=== PATIENT | female | born 1975 | race Caucasian/White ===

== ENCOUNTER 2020-03-08 09:00 | Emergency (ER) | payer MEDICAID ==
[~2020-03-08] VITALS: Ht 172.7 cm; Wt 149.7 kg
[~2020-03-08 09:00] MED LIST: ACIPHEX; ALBUAER3 IN; DOXY-286 PO; FLUC200T35 PO; GLYB1POW; INSU100I4 SC; INSU1INJ4 SC; METFORMIN; SACC250C PO
[2020-03-08 09:50] LABS: Basophils # (auto) 0.1 10 ^3/uL (0-0.2); Eosinophils # (auto) 0.1 10 ^3/uL (0-0.8); Monocytes # (auto) 0.5 10 ^3/uL (0-1.3); Neutrophils # (auto) 4.8 10 ^3/uL (1.6-8.6)
[2020-03-08 09:52] LABS: Basophils % (auto) 0.7 % (0.0-2.0); Eosinophils % (auto) 1.8 % (0.0-7.0); Hematocrit 38.1 % (36.0-46.0); Hemoglobin 12.2 g/dL (12.2-16.2); Lymphocytes # (auto) 2.1 10 ^3/uL (0.4-5.4); Lymphocytes % (auto) 28.1 % (10.0-50.0); Mean Corpuscular Hgb Conc. 32.1 g/dL (32.0-36.0); Mean Corpuscular Volume 74.6 fL (80.0-100.0); Monocytes % (auto) 5.9 % (0.0-12.0); Neutrophils % (auto) 63.5 % (37.0-80.0); Platelet Count (auto) 206 10^3/uL (140-450); Red Blood Cells 5.11 10^6/uL (4.0-5.20); Red Cell Distribution Width 17.2 % (11.8-14.3); White Blood Cell 7.6 10^3/uL (4.4-10.8)
[2020-03-08 09:57] LABS: Albumin 3.2 g/dL (3.4-5.0); INR 0.93 (0.9-1.15); Partial Thromboplastin Time 24.6 sec (23.0-31.2); Potassium 4.1 mmol/L (3.5-5.1)
[2020-03-08 10:01] LABS: BUN/Creatinine Ratio 24.1; Bilirubin, Total 0.4 mg/dL (0.2-1.0); Total Protein 7.9 g/dL (6.4-8.2)
[2020-03-08] MEDS ORDERED: INSULIN LISPRO (HUMAN) 100 UNITS/ML ML SC ONE (12:30)
[2020-03-08 14:06] VITALS: BP 149/72
== END 2020-03-08 15:59 | disposition home or self-care (01) ==
LOC: ER 09:00
DX: L03.116 Cellulitis of left lower limb (principal); E11.65 Type 2 diabetes mellitus with hyperglycemia; E44.1 Mild protein-calorie malnutrition; I10 Essential (primary) hypertension; J45.909 Unspecified asthma, uncomplicated; K21.9 Gastro-esophageal reflux disease without esophagitis; Z88.2 Allergy status to sulfonamides; Z91.041 Radiographic dye allergy status
CPT/HCPCS: 36415; 80053; 85025; 85379; 85610; 85730

== ENCOUNTER 2020-12-24 17:44 | Emergency (ER) | payer MEDICAID ==
[~2020-12-24] VITALS: Ht 172.7 cm; Wt 147.4 kg
[2020-12-24 17:58] VITALS: BP 172/90
== END 2020-12-24 23:10 | disposition home or self-care (01) ==
LOC: ER 17:44
DX: R10.2 Pelvic and perineal pain (principal); J45.909 Unspecified asthma, uncomplicated; E11.9 Type 2 diabetes mellitus without complications; Z88.2 Allergy status to sulfonamides; Z88.1 Allergy status to other antibiotic agents

== ENCOUNTER 2022-07-31 14:39 | Emergency (ER) | payer MEDICAID ==
[~2022-07-31] VITALS: Ht 172.7 cm; Wt 160.0 kg
[2022-07-31] MEDS ORDERED: LIDOCAINE 1% HCL (LOCAL ANESTH.) INJ 20ML MDV ID ONE (18:45)
[2022-07-31] MEDS ORDERED: CEPH-510 PO (19:05)
[2022-07-31 19:46] VITALS: BP 145/87
== END 2022-07-31 21:39 | disposition home or self-care (01) ==
LOC: ER 14:39
DX: L02.416 Cutaneous abscess of left lower limb (principal); E11.9 Type 2 diabetes mellitus without complications; J45.909 Unspecified asthma, uncomplicated
CPT/HCPCS: 10060

== ENCOUNTER 2023-01-01 05:26 | Emergency (ER) | payer MEDICAID ==
[~2023-01-01] VITALS: Ht 170.2 cm; Wt 147.2 kg
[~2023-01-01 05:26] MED LIST changes: +CEPH-510 PO; +FLUC200T PO; -FLUC200T35 PO
[2023-01-01 05:43] VITALS: BP 177/77
[2023-01-01] MEDS ORDERED: TRAM50TA2 PO (07:02)
== END 2023-01-01 07:08 | disposition home or self-care (01) ==
LOC: ER 05:26
DX: S13.4XXA Sprain of ligaments of cervical spine, initial encounter (principal); M54.2 Cervicalgia; J45.909 Unspecified asthma, uncomplicated; E11.9 Type 2 diabetes mellitus without complications; Z88.1 Allergy status to other antibiotic agents; Z88.2 Allergy status to sulfonamides; X58.XXXA Exposure to other specified factors, initial encounter; Y93.89 Activity, other specified; Y92.89 Other specified places as the place of occurrence of the external cause; Y99.8 Other external cause status

== ENCOUNTER 2024-02-27 10:59 | Emergency (ER) | payer MEDICAID ==
[~2024-02-27 10:59] MED LIST changes: +TRAM50TA2 PO
== END 2024-02-27 11:24 | disposition left against medical advice (07) ==
LOC: ER 10:59
DX: R10.9 Unspecified abdominal pain (principal); Z53.21 Procedure and treatment not carried out due to patient leaving prior to being seen by health care provider